=== PATIENT | female | born 1975 | race Caucasian/White ===

== ENCOUNTER → 2025-08-24 12:09 | Outpatient (BNVA) | payer OTHER, SELFPAY | PROVIDERS: PCP Nurse Practitioner Family; Visit Provider Nurse Practitioner Family | DX: R19.00 Intra-abdominal and pelvic swelling, mass and lump, unspecified site (principal); R10.9 Unspecified abdominal pain | CPT/HCPCS: 80053; 85025 ==

== ENCOUNTER 2025-09-06 14:49 | Outpatient (CLI) | payer OTHER, SELFPAY ==
--- NOTE | 2025-09-06 15:45 | CTR_ITS ---
PROCEDURE INFORMATION: Exam: CT Abdomen And Pelvis With Contrast Exam date and time: 09/06/2025 3:57 PM Age: 50 years old Clinical indication: Mass, lump, or swelling; Generalized; Prior surgery; Surgery date: 6+ months; Surgery type: Uterine ablation, gb, liver mass; Right side lump x 1 year, getting painful in the last 1.5 months; Additional info: R19.00 - intra-abdominal and pelvic swelling, mass and elana. . . TECHNIQUE: Imaging protocol: Computed tomography of the abdomen and pelvis with contrast. Radiation optimization: All CT scans at this facility use at least one of these dose optimization techniques: automated exposure control; mA and/or kV adjustment per patient size (includes targeted exams where dose is matched to clinical indication); or iterative reconstruction. Contrast material: OMNI 350; Contrast volume: 100 ml; Contrast route: INTRAVENOUS (IV); COMPARISON: l spine RADIATION DOSE METRICS: Total DLP (mGy-cm): 584.56 FINDINGS: Lungs: Lung bases are unremarkable. Liver: There is hepatic steatosis. There is hepatomegaly. Gallbladder and biliary ducts: Post cholecystectomy. Prominent common bile duct measuring 9.6 mm. Pancreas: Pancreas is unremarkable. No ductal dilation or peripancreatic inflammation. Spleen: The spleen is unremarkable. Adrenal glands: Adrenal glands are unremarkable. Kidneys and ureters: No hydronephrosis, hydroureter or nephrolithiasis. Bilateral subcentimeter renal hypodensities which are too small to characterize and likely represent renal cysts. Stomach and bowel: Stomach is mildly distended with contrast. Small and large bowel are normal in caliber without evidence of obstruction. Appendix: No evidence of appendicitis. Intraperitoneal space: No free intraperitoneal air. No significant fluid collection. Vasculature: There is no aortic aneurysm. Origins of the celiac, SMA, CRYSTAL and renal arteries are patent. Lymph nodes: Multiple shotty mesenteric nodes which are likely reactive. Urinary bladder: Bladder is distended with no focal wall thickening. Reproductive: Uterus is unremarkable for patient's age. No suspicious adnexal lesion seen. 2.4 cm right ovarian cyst. Bones/joints: No acute osseous abnormality. There is mild degenerative disease of the spine. There is disc space narrowing at the L5-S1 level. Soft tissues: There is a small fat containing umbilical hernia. CT/CT abdomen pelvis w con* [id number] IMPRESSION: 1. No acute findings. 2. Hepatomegaly with hepatic steatosis. COMMENTS: Consistent with the [employer]'s Incidental Findings Committee white paper (J Am Ramin Radiol 2018): Any incidental renal lesion less than 1 cm or classified as too small to characterize, or any incidental cystic renal lesion characterized as simple-appearing, is likely benign. No follow-up imaging is recommended for these lesions per consensus recommendations based on imaging criteria.
[2025-09-06] MEDS: iohexol 350 mg/mL 500 mL Btl (per mL) PO (15:47)
== END 2025-09-06 14:50 | disposition home or self-care (01) ==
LOC: RAD 14:51
PROVIDERS: PCP Nurse Practitioner Family; Visit Provider Nurse Practitioner Family
DX: R19.00 Intra-abdominal and pelvic swelling, mass and lump, unspecified site (principal); R10.9 Unspecified abdominal pain; R79.89 Other specified abnormal findings of blood chemistry; K76.0 Fatty (change of) liver, not elsewhere classified; R16.0 Hepatomegaly, not elsewhere classified; Z90.49 Acquired absence of other specified parts of digestive tract; R59.1 Generalized enlarged lymph nodes; N32.89 Other specified disorders of bladder; N83.201 Unspecified ovarian cyst, right side; R93.7 Abnormal findings on diagnostic imaging of other parts of musculoskeletal system
CPT/HCPCS: 74177